=== PATIENT | female | born 1945 | race Caucasian/White ===

== ENCOUNTER 2019-10-17 12:00 | Emergency (ER) | payer OTHER ==
[~2019-10-17] VITALS: Ht 162.6 cm; Wt 86.2 kg
[2019-10-17 12:50] VITALS: BP 159/78
== END 2019-10-17 13:25 | disposition home or self-care (01) ==
LOC: ER 12:05
DX: G51.0 Bell's palsy (principal); R42 Dizziness and giddiness; E11.9 Type 2 diabetes mellitus without complications; E78.5 Hyperlipidemia, unspecified; I10 Essential (primary) hypertension; Z98.890 Other specified postprocedural states
CPT/HCPCS: 70450; 71045